=== PATIENT | male | born 1950 | race Caucasian/White ===

== ENCOUNTER 2019-03-09 14:06 | Inpatient (IN) | payer MEDICARE, MEDICAID ==
--- NOTE | 2019-03-09 14:20 | ED Physician Chart ---
ED Chief Complaint/HPI - Patient Information Date Seen:: 03/09/19 Time Seen:: 14:10 Chief Complaint:: Weight loss. History of Present Illness:: Brought in by ambulance from nursing facility because pt has been noticed to have weight loss. Pt feels comfortable without bodily pain. No N/V/D. Last BM this morning that was normal in color/consistency. No hematochezia or melena. No anorexia. No cough. No fever. Pt tends to be forgetful and is a poor history provider. Allergies:: Allergies Allergy/AdvReac Type Severity Reaction Status Date / Time No Known Allergies Allergy Verified 03/09/19 14:14 Vitals:: see Nurse Note. Historian:: Patient Family MD/PCP:: Dr. Oliveros. LMP:: N/A Review:: Nurse's Note Reviewed, Transfer documents Reviewed ED Review of Systems - Review of Systems General/Constitutional: No fever, No chills, Weight loss, No weakness, No edema , No loss of appetite Skin: No skin lesions, No rash, No bruising Head: No headache, No light-headedness Eyes: No loss of vision, No pain, No diplopia ENT: No earache, No nasal drainage, No sore throat Neck: No neck pain, No swelling, No thyromegaly, No stiffness Cardio Vascular: No chest pain, No palpitations, No edema Pulmonary: No SOB, No cough, No wheezing GI: No nausea, No vomiting, No diarrhea, No pain, No melena, No hematochezia, No constipation G/U: No dysuria, No frequency, No hematuria Musculoskeletal: No bone or joint pain Endocrine: No polyuria, No polydipsia Psychiatric: No prior psych history, No depression Hematopoietic: No bruising, No lymphadenopathy Allergic/Immuno: No urticaria, No angioedema Neurological: No focal symptoms, No weakness, No paresthesia, No headache, No confusion ED Past Medical History - Past Medical History Past Medical History: HTN, DM, Dyslipidemia, PUD/GERD, Thyroid disorder, Dementia Family History: Diabetes Melitus Social History: Non Smoker, No Alcohol, No Drug Use, , Care Facility Employment:: Retired. Surgical History: None Psychiatricy History: None Medication: Reviewed ED Physical Exam - Physical Examination General/Constitutional: Awake, Well-developed, well-nourished, Alert, No distress, Non-toxic appearing Other Gen/Cons comments:: Breathes comfortably, speaks clearly, and interacts appropriately. Head: Atraumatic Eyes: Lids, conjuctiva normal, PERRL, EOMI Skin: Nl inspection, No skin lesions Other Skin comments:: Mucous membrane is slightly dry. ENMT: External ears, nose nl, Nasal exam nl, Oropharynx nl Neck: Nontender, Full ROM w/o pain, No JVD, No nuchal rigidity, No mass Respiratory: Nl effort/Exclusion, Clear to Auscultation, No Wheeze/Rhonchi/Rales Cardio Vascular: RRR, No murmur, gallop, rubs GI: No tenderness/rebounding/guarding, No organomegaly, Normal BS's, Nondistended, No mass/bruits : No CVA tenderness Extremities: No tenderness or effusion, Full ROM, No edema Neuro/Psych: Alert/oriented (oriented x 3.), No focal deficits Misc: Normal back, No paraspinal tenderness ED Labs/Radiology/EKG Results - Lab Results Results: Laboratory Results - last 24 hr 03/09/19 03/09/19 03/09/19 14:30 14:40 14:40 WBC 8.7 RBC 5.10 Hgb 15.3 Hct 45.8 MCV 89.8 MCH 30.0 MCHC Differential 33.4 RDW 12.1 Plt Count 327 MPV 7.7 Neutrophils % 40.3 Lymphocytes % 48.9 Monocytes % 7.1 Eosinophils % 3.0 Basophils % 0.7 PT 10.0 INR 0.96 PTT (Actin FS) 28.2 Sodium Potassium Chloride Carbon Dioxide Anion Gap BUN Creatinine Est GFR ( Amer) Est GFR (Non-Af Amer) BUN/Creatinine Ratio Glucose POC Glucose Calcium Total Bilirubin AST ALT Alkaline Phosphatase Total Protein Albumin Globulin Albumin/Globulin Ratio Urine Source CLEAN C Urine Color YELLOW Urine Clarity CLEAR Urine pH 6.0 Ur Specific Severance <= 1.005 Urine Protein NEGATIVE Urine Glucose (UA) >=1000 H Urine Ketones NEGATIVE Urine Blood NEGATIVE Urine Nitrate NEGATIVE Urine Bilirubin NEGATIVE Urine Urobilinogen 0.2 Ur Leukocyte Esterase NEGATIVE Urine RBC NONE SEEN Urine WBC 0-2 Ur Epithelial Cells OCCASIONAL Urine Bacteria OCCASIONAL Serum Ketones 03/09/19 03/09/19 03/09/19 14:40 14:40 14:50 WBC RBC Hgb Hct MCV MCH MCHC Differential RDW Plt Count MPV Neutrophils % Lymphocytes % Monocytes % Eosinophils % Basophils % PT INR PTT (Actin FS) Sodium 132 L Potassium 4.3 Chloride 93 L Carbon Dioxide 28.0 Anion Gap 15.3 BUN 16 Creatinine 1.1 Est GFR ( Amer) > 60.0 Est GFR (Non-Af Amer) > 60.0 BUN/Creatinine Ratio 14.5 Glucose 602 H* POC Glucose 591 H* Calcium 9.6 Total Bilirubin 0.5 AST 7 L ALT 11 Alkaline Phosphatase 139 H Total Protein 6.7 Albumin 3.9 L Globulin 2.8 Albumin/Globulin Ratio 1.4 Urine Source Urine Color Urine Clarity Urine pH Ur Specific Severance Urine Protein Urine Glucose (UA) Urine Ketones Urine Blood Urine Nitrate Urine Bilirubin Urine Urobilinogen Ur Leukocyte Esterase Urine RBC Urine WBC Ur Epithelial Cells Urine Bacteria Serum Ketones NEGATIVE Pending lab result: TSH. ED Septic Shock - . Is Septic Shock (SBP<90, OR Lactate>4 mmol\L) present?: No ED Reassessment (Disposition) - Reassessment Reassessment:: 1525 Pt remains stable and appears to be comfortable. Lab results just became available and have been reviewed with pt. Management plan has been discussed. 1645 Case was discussed with Dr. Oliveros with pertinent info reviewed. Pt is to be admitted to [facility] under his care. Reassessment Condition:: Improved - Diagnosis Diagnosis:: Unexplained weight loss by hx. Uncontrolled diabetes mellitus. Dehydration. H/O HTN. H/O hypothyroidism. H/O dementia. - Patient Disposition Admitted to:: Med/Surg Admitting Medical Physician:: Yasmany Oliveros Time:: 16:45 Condition at Disposition:: Stable
[2019-03-09 14:50] LABS: % BASOPHILS 0.7 % (0.0-2.0); % LYMPHOCYTES 48.9 % (20.0-50.0); % MONOCYTES 7.1 % (2.0-10.0); % NEUTROPHILS 40.3 % (40.0-80.0); BASOPHILE ABSOLUTE 0.1 Th/cumm (0-0.2); EOSINOPHILE ABSOLUTE 0.3 Th/cmm (0.1-0.4); HEMATOCRIT 45.8 % (41.0-60); HEMOGLOBIN 15.3 gm/dL (12-16); LYMPHOCYTE ABSOLUTE 4.2 Th/cmm (1.5-3.0); MEAN CELL VOLUME 89.8 fl (80-99); MEAN CORPUSCULAR HGB CONC 33.4 pg (28.0-36.0); MEAN PLATELET VOLUME 7.7 fl; MONOCYTE ABSOLUTE 0.6 Th/cmm (0.3-1.0); NEUTROPHILE ABSOLUTE 3.5 Th/cmm (1.8-8.0); PLATELET COUNT 327 Th/cmm (150-400); RED CELL DISTRIBUTION WIDTH 12.1 % (11.5-20.0); WHITE BLOOD COUNT 8.7 Th/cmm (4.8-10.8)
[2019-03-09 14:54] LABS: URINE SOURCE CLEAN C
[2019-03-09 15:11] LABS: URINE BILIRUBIN NEGATIVE (NEGATIVE); URINE BLOOD NEGATIVE (NEGATIVE); URINE GLUCOSE (UA) >=1000 mg/dL (NEGATIVE); URINE KETONE NEGATIVE (NEGATIVE); URINE LEUKOCYTE ESTERASE NEGATIVE (NEGATIVE); URINE MICROSCOPIC INDICATED? YES; URINE NITRATE NEGATIVE (NEGATIVE); URINE PROTEIN NEGATIVE (NEGATIVE); URINE UROBILINOGEN 0.2 E.U./dL (0.2 - 1.0)
[2019-03-09 15:12] LABS: INR 0.96 (0.5-1.4)
[2019-03-09 15:14] LABS: URINE CLARITY CLEAR (CLEAR); URINE COLOR YELLOW
[2019-03-09 15:15] LABS: ALB/GLOB RATIO 1.4 (1.0-1.8); ALBUMIN 3.9 gm/dL (4.2-5.5); ALKALINE PHOSPHATASE 139 U/L (34-104); ANION GAP 15.3 (7.0-16.0); BILIRUBIN,TOTAL 0.5 mg/dL (0.3-1.0); BUN - UREA NITROGEN 16 mg/dL (7-25); CALCIUM SERUM 9.6 mg/dL (8.6-10.3); CHLORIDE 93 mEq/L (98-107); CREATININE - SERUM 1.1 mg/dL (0.7-1.3); GFR AFRICAN-AMERICAN > 60.0 ml/min (>90); GFR NON AFRICAN-AMERICAN > 60.0 ml/min; POTASSIUM SERUM 4.3 mEq/L (3.5-5.1); SGOT 7 U/L (13-39); SGPT/ALT 11 U/L (7-52); SODIUM SERUM 132 mEq/L (136-145); TOTAL PROTEIN,SERUM 6.7 gm/dL (6.0-8.3)
[2019-03-09 15:20] LABS: URINE BACTERIA OCCASIONAL /hpf (NONE SEEN); URINE EPITHELIAL CELLS OCCASIONAL /lpf (FEW); URINE RBC NONE SEEN /hpf (0-5); URINE WBC 0-2 /hpf (0-5)
[2019-03-09 15:22] LABS: GLUCOSE 602 mg/dL (70-105)
[2019-03-09] MEDS ORDERED: INSULIN HUMAN REGULAR 100 UNITS/ML UNIT SUBQ ONE (15:24)
[2019-03-09] MEDS ORDERED: INSULIN HUMAN REGULAR 100 UNITS/ML UNIT ONE (15:29)
[2019-03-09] MEDS ORDERED: Sodium Chloride 0.9% 1,000 ML IV SCH (15:45)
[2019-03-09] MEDS ORDERED: GLUCAGON HCl 1 MG KIT IM PRN (17:13)
[2019-03-09] MEDS ORDERED: Dextrose 50% 50 mL Abboject IVP PRN (17:13)
[2019-03-09] MEDS ORDERED: cefTRIAXone 1 GM in Sodium Chloride 0.9% 50 ML IV ONE (17:15)
[2019-03-09 20:22] VITALS: BP 150/87
[2019-03-09] MEDS: INSULIN LISPRO SLIDING SCALE 100 UNITS/ML UNIT SUBQ SCH (20:43)
[2019-03-09] MEDS: Sodium Chloride 0.45% 1,000 ML IV SCH (20:46)
[2019-03-10] MEDS: INSULIN LISPRO SLIDING SCALE 100 UNITS/ML UNIT SUBQ SCH ×5 (00:27→21:44)
[2019-03-10] MEDS: Sodium Chloride 0.45% 1,000 ML IV SCH (04:24)
[2019-03-10 05:00] LABS: HEMATOCRIT 43.5 % (41.0-60); HEMOGLOBIN 14.2 gm/dL (12-16); MEAN CELL VOLUME 90.2 fl (80-99); MEAN CORPUSCULAR HEMOGLOBIN 29.4 pg (27.0-31.0); MEAN CORPUSCULAR HGB CONC 32.7 pg (28.0-36.0); MEAN PLATELET VOLUME 7.5 fl; PLATELET COUNT 339 Th/cmm (150-400); RED BLOOD COUNT 4.83 Mil/cmm (3.80-5.80); WHITE BLOOD COUNT 9.9 Th/cmm (4.8-10.8)
[2019-03-10 05:56] LABS: ALB/GLOB RATIO 1.4 (1.0-1.8); ALBUMIN 3.4 gm/dL (4.2-5.5); ALKALINE PHOSPHATASE 98 U/L (34-104); BILIRUBIN,TOTAL 0.3 mg/dL (0.3-1.0); BUN - UREA NITROGEN 16 mg/dL (7-25); CALCIUM SERUM 8.7 mg/dL (8.6-10.3); CARBON DIOXIDE 26.4 mEq/L (21.0-31.0); CHLORIDE 99 mEq/L (98-107); CHOLESTEROL 168 mg/dL (<200); CREATININE - SERUM 0.9 mg/dL (0.7-1.3); GFR AFRICAN-AMERICAN > 60.0 ml/min (>90); GFR NON AFRICAN-AMERICAN > 60.0 ml/min; HDL -HIGH DENSITY LIPOPROTEIN 46 mg/dL (23-92); POTASSIUM SERUM 3.4 mEq/L (3.5-5.1); SGOT 7 U/L (13-39); SGPT/ALT 9 U/L (7-52); SODIUM SERUM 135 mEq/L (136-145); TOTAL PROTEIN,SERUM 5.8 gm/dL (6.0-8.3); TRIGLYCERIDES 137 mg/dL (<150)
[2019-03-10 05:58] LABS: GLUCOSE 297 mg/dL (70-105)
[2019-03-10 08:13] LABS: BAND NEUTROPHILE 0 % (0-10); EOSINOPHIL 4 % (0-5); LYMPHOCYTE 48 % (20-50); MONOCYTE 8 % (2-10); NEUTROPHILS 40 % (40-80)
[2019-03-10 08:14] LABS: BASOPHIL 0 % (0-3)
[2019-03-10] MEDS ORDERED: Potassium Chloride 20 mEq ER Tab PO ONE (10:39)
--- NOTE | 2019-03-10 15:08 | History & Physical ---
ADMIT DATE: 03/10/[address] Oliveros. CHIEF COMPLAINT: Weight loss. HISTORY OF PRESENT ILLNESS: This is a 68-year-old male who is a [facility] resident, admitted to the Med/Surg unit with 1-day history of weight loss. PAST MEDICAL HISTORY: Hypertension, diabetes, dyslipidemia, GERD, hypothyroidism and dementia. FAMILY HISTORY: Noncontributory. SOCIAL HISTORY: The patient is a [facility] resident. SURGICAL HISTORY: None. MEDICATIONS: See medication list. REVIEW OF SYSTEMS: GENERAL: Denies any fever or chills. CARDIOVASCULAR: Denies chest pain. RESPIRATORY: Denies shortness of breath. GENITOURINARY: Denies increased frequency. NEUROLOGIC: No headaches, seizures, or syncope. All systems are reviewed and are negative. PHYSICAL EXAMINATION: GENERAL: The patient is well developed, well nourished, no apparent distress. VITAL SIGNS: Temperature 97.7, heart rate 69, blood pressure 136/68, respirations 16, O2 of 96. HEENT: Head normocephalic, atraumatic. NECK: Supple. No mass. LUNGS: Clear bilaterally.. HEART: Regular rate and rhythm. ABDOMEN: Soft, nontender. LABORATORY DATA: WBC 9.9, H and H 14.2 and 43.5, platelet 339. Sodium 135, potassium 3.4, chloride 99, BUN 16, creatinine 0.9. ASSESSMENT: Uncontrolled diabetes, weight loss. Acute dehydration. PLAN: The patient to be admitted to the Med/Surg unit. Keep the patient on IV fluids for hydration. We will get dietitian on board. We will do Accu-Chek a.c. and bedtime. We will continue to monitor the patient. JOB# [id number]
[2019-03-10] MEDS: Insulin Glargine 100 units/ml 10ml Vial SUBQ SCH (21:45)
[2019-03-11] MEDS: INSULIN LISPRO SLIDING SCALE 100 UNITS/ML UNIT SUBQ SCH ×4 (06:45→20:56)
[2019-03-11 07:17] LABS: HEMATOCRIT 43.3 % (41.0-60); HEMOGLOBIN 14.2 gm/dL (12-16); MEAN CELL VOLUME 89.2 fl (80-99); MEAN CORPUSCULAR HEMOGLOBIN 29.3 pg (27.0-31.0); MEAN CORPUSCULAR HGB CONC 32.8 pg (28.0-36.0); MEAN PLATELET VOLUME 7.9 fl; PLATELET COUNT 319 Th/cmm (150-400); RED BLOOD COUNT 4.85 Mil/cmm (3.80-5.80); RED CELL DISTRIBUTION WIDTH 12.2 % (11.5-20.0); WHITE BLOOD COUNT 8.3 Th/cmm (4.8-10.8)
[2019-03-11 07:31] LABS: ANION GAP 11.4 (7.0-16.0); BUN - UREA NITROGEN 18 mg/dL (7-25); CALCIUM SERUM 8.9 mg/dL (8.6-10.3); CARBON DIOXIDE 26.2 mEq/L (21.0-31.0); CHLORIDE 103 mEq/L (98-107); CREATININE - SERUM 0.8 mg/dL (0.7-1.3); GFR AFRICAN-AMERICAN > 60.0 ml/min (>90); GFR NON AFRICAN-AMERICAN > 60.0 ml/min; GLUCOSE 247 mg/dL (70-105); POTASSIUM SERUM 3.6 mEq/L (3.5-5.1); SODIUM SERUM 137 mEq/L (136-145)
[2019-03-11 09:00] LABS: BAND NEUTROPHILE 0 % (0-10); BASOPHIL 0 % (0-3); EOSINOPHIL 4 % (0-5); LYMPHOCYTE 50 % (20-50); METAMYELOCYTE 0 % (0-0); MONOCYTE 9 % (2-10); NEUTROPHILS 37 % (40-80)
[2019-03-11] MEDS: Pantoprazole 40 mg EC Tab PO SCH (09:58)
[2019-03-11] MEDS: Multivitamin w/ Minerals Tab PO SCH (09:59)
[2019-03-11] MEDS: Sodium Chloride 0.45% 1,000 ML IV SCH ×2 (09:59→23:16)
--- NOTE | 2019-03-11 19:57 | Internal Medicine Prog Note ---
Internal Medicine Subjective - Subjective Service Date: 03/11/19 Patient seen and examined:: with staff Patient is:: awake, verbal, confused Patient Complaints of:: weight loss Per staff patient has:: no adverse event, no episodes of fall, other ( Dehydration.) Internal Medicine Objective - Results Result Diagrams: 03/11/19 05:50 03/11/19 05:50 Recent Labs: Laboratory Last Values WBC 8.3 Th/cmm (4.8-10.8) 03/11/19 05:50 RBC 4.85 Mil/cmm (3.80-5.80) 03/11/19 05:50 Hgb 14.2 gm/dL (12-16) 03/11/19 05:50 Hct 43.3 % (41.0-60) 03/11/19 05:50 MCV 89.2 fl (80-99) 03/11/19 05:50 MCH 29.3 pg (27.0-31.0) 03/11/19 05:50 MCHC Differential 32.8 pg (28.0-36.0) 03/11/19 05:50 RDW 12.2 % (11.5-20.0) 03/11/19 05:50 Plt Count 319 Th/cmm (150-400) 03/11/19 05:50 MPV 7.9 fl 03/11/19 05:50 Add Manual Diff YES 03/11/19 05:50 Neutrophils % 40.3 % (40.0-80.0) 03/09/19 14:40 Band Neutrophils % 0 % (0-10) 03/11/19 05:50 Lymphocytes % 48.9 % (20.0-50.0) 03/09/19 14:40 Monocytes % 7.1 % (2.0-10.0) 03/09/19 14:40 Eosinophils % 3.0 % (0.0-5.0) 03/09/19 14:40 Basophils % 0.7 % (0.0-2.0) 03/09/19 14:40 Neutrophils (Manual) 37 % (40-80) L 03/11/19 05:50 Lymphocytes 50 % (20-50) 03/11/19 05:50 Monocytes 9 % (2-10) 03/11/19 05:50 Eosinophils 4 % (0-5) 03/11/19 05:50 Basophils 0 % (0-3) 03/11/19 05:50 Metamyelocytes 0 % (0-0) 03/11/19 05:50 PT 10.0 SECONDS (9.5-11.5) 03/09/19 14:40 INR 0.96 (0.5-1.4) 03/09/19 14:40 PTT (Actin FS) 28.2 SECONDS (26.0-38.0) 03/09/19 14:40 Sodium 137 mEq/L (136-145) 03/11/19 05:50 Potassium 3.6 mEq/L (3.5-5.1) 03/11/19 05:50 Chloride 103 mEq/L (98-107) 03/11/19 05:50 Carbon Dioxide 26.2 mEq/L (21.0-31.0) 03/11/19 05:50 Anion Gap 11.4 (7.0-16.0) 03/11/19 05:50 BUN 18 mg/dL (7-25) 03/11/19 05:50 Creatinine 0.8 mg/dL (0.7-1.3) 03/11/19 05:50 Est GFR ( Amer) > 60.0 ml/min (>90) 03/11/19 05:50 Est GFR (Non-Af Amer) > 60.0 ml/min 03/11/19 05:50 BUN/Creatinine Ratio 22.5 03/11/19 05:50 Glucose 247 mg/dL (70-105) H 03/11/19 05:50 POC Glucose 299 MG/DL (70 - 105) H 03/11/19 16:01 Calcium 8.9 mg/dL (8.6-10.3) 03/11/19 05:50 Total Bilirubin 0.3 mg/dL (0.3-1.0) 03/10/19 04:50 AST 7 U/L (13-39) L 03/10/19 04:50 ALT 9 U/L (7-52) 03/10/19 04:50 Alkaline Phosphatase 98 U/L (34-104) 03/10/19 04:50 Total Protein 5.8 gm/dL (6.0-8.3) L 03/10/19 04:50 Albumin 3.4 gm/dL (4.2-5.5) L 03/10/19 04:50 Globulin 2.4 gm/dL 03/10/19 04:50 Albumin/Globulin Ratio 1.4 (1.0-1.8) 03/10/19 04:50 Triglycerides 137 mg/dL (<150) 03/10/19 04:50 Cholesterol 168 mg/dL (<200) 03/10/19 04:50 LDL Cholesterol Direct 109 mg/dL (75-193) 03/10/19 04:50 HDL Cholesterol 46 mg/dL (23-92) 03/10/19 04:50 TSH 5.12 uIU/ml (0.34-5.60) 03/10/19 04:50 Urine Source CLEAN C 03/09/19 14:30 Urine Color YELLOW 03/09/19 14:30 Urine Clarity CLEAR (CLEAR) 03/09/19 14:30 Urine pH 6.0 (4.6 - 8.0) 03/09/19 14:30 Ur Specific [place] <= 1.005 (1.005-1.030) 03/09/19 14:30 Urine Protein NEGATIVE mg/dL (NEGATIVE) 03/09/19 14:30 Urine Glucose (UA) >=1000 mg/dL (NEGATIVE) H 03/09/19 14:30 Urine Ketones NEGATIVE mg/dL (NEGATIVE) 03/09/19 14:30 Urine Blood NEGATIVE (NEGATIVE) 03/09/19 14:30 Urine Nitrate NEGATIVE (NEGATIVE) 03/09/19 14:30 Urine Bilirubin NEGATIVE (NEGATIVE) 03/09/19 14:30 Urine Urobilinogen 0.2 E.U./dL (0.2 - 1.0) 03/09/19 14:30 Ur Leukocyte Esterase NEGATIVE (NEGATIVE) 03/09/19 14:30 Urine RBC NONE SEEN /hpf (0-5) 03/09/19 14:30 Urine WBC 0-2 /hpf (0-5) 03/09/19 14:30 Ur Epithelial Cells OCCASIONAL /lpf (FEW) 03/09/19 14:30 Urine Bacteria OCCASIONAL /hpf (NONE SEEN) 03/09/19 14:30 Serum Ketones NEGATIVE (NEGATIVE) 03/09/19 14:50 - Physical Exam Vitals and I&O: Vital Signs Temp 97.8 F 03/11/19 16:00 Pulse 61 03/11/19 16:00 Resp 18 03/11/19 16:00 BP 142/68 03/11/19 16:00 Pulse Ox 98 03/11/19 16:00 Intake & Output 03/11/19 03/11/19 03/12/19 06:59 18:59 06:59 Intake Total 350 160 Output Total 241 Balance 350 -81 Weight (lbs) 72.575 kg 72.575 kg Intake: Oral 350 160 Output: Urine 240 Stool 1 Other: # Voids 3 4 Weight Source Bedscale Bedscale Active Medications: Current Medications Dextrose (D50w) 50 ml IVP PRN PRN PRN Reason: Blood Glucose less than 70 Stop: 05/08/19 17:12 Dextrose (Glutose 40%) 18.75 gm PO PRN PRN PRN Reason: Blood Glucose less than 70 Stop: 05/08/19 17:12 Docusate Sodium (Colace) 100 mg PO DAILY [facility] Stop: 05/10/19 08:59 Last Admin: 03/11/19 09:59 Dose: 100 mg Donepezil HCl (Aricept) 10 mg PO [facility] Stop: 05/09/19 20:59 Last Admin: 03/10/19 21:44 Dose: 10 mg Glipizide (Glucotrol) 10 mg PO BID [facility] Stop: 05/09/19 16:59 Last Admin: 03/11/19 16:39 Dose: 10 mg Glucagon (Glucagen) 1 mg IM PRN PRN PRN Reason: Blood Glucose less than 70 Stop: 05/08/19 17:12 Sodium Chloride (Nacl 0.45%) 1,000 mls @ 125 mls/hr IV .Q8H [facility] Stop: 05/08/19 17:14 Last Admin: 03/11/19 09:59 Dose: 125 mls/hr Insulin Glargine (Lantus Insulin) 20 units SUBQ HS [facility] Stop: 05/09/19 20:59 Last Admin: 03/10/19 21:45 Dose: 20 unit Insulin Human Lispro (Humalog Insulin Sliding Scale) 0 units SUBQ [facility]; Protocol Stop: 05/09/19 16:29 Last Admin: 03/11/19 16:41 Dose: 6 units Pantoprazole Sodium (Protonix) 40 mg PO DAILY [facility] Stop: 05/10/19 08:59 Last Admin: 03/11/19 09:58 Dose: 40 mg Physical Exam: 68 y/o male patient has hx of Dementia, he has been dehydrated and weight loss. General: weak, demented HEENT: NC/AT Neck: Supple Lungs: CTAB Cardiovascular: RRR, Normal S1 Abdomen: soft, non-tender Extremities: clear Neurological: no change Internal Medicine Assmt/Plan - Assessment Assessment: Weight loss. Gerd. Hypothyroidism. HTN. DM. Dyslipidemia. Dementia. Acute dehydration. - Plan Plan: Continuation of care. Monitor vitals, low sodium diabetic diet and labs. Continue present meds as directed. Monitor mental status progression. Monitor behavioral health status. Supportive care. Fall precaution, frequent nursing rounds, and as needed restraints to prevent fall. Continue present care management. Nutritional Asmnt/Malnutr-PDOC - Dietary Evaluation Malnutrition Findings (Please click <Entered> for more info): see orders.
[2019-03-11] MEDS: Insulin Glargine 100 units/ml 10ml Vial SUBQ SCH (20:58)
--- NOTE | 2019-03-11 22:26 | Consultation ---
DATE OF CONSULTATION: 03/11/2019 INFECTIOUS DISEASE CONSULTATION REFERRING PHYSICIAN: Wing Oliveros M.D. REASON FOR CONSULTATION: Weight loss. HISTORY OF PRESENT ILLNESS: The patient is a 68-year-old male with past medical history of diabetes mellitus type 2, dementia, hypertension, hyperlipidemia, GERD, hypothyroidism, brought in from senior living for history of weight loss. The patient denies any fever. The patient denies any hematuria or hemoptysis. The patient denies any pain. 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 PAST MEDICAL HISTORY: Includes hypertension, diabetes mellitus type 2, dyslipidemia, GERD, hypothyroidism and dementia. FAMILY HISTORY: Noncontributory. SOCIAL HISTORY: The patient lives in a senior living. No history of smoking, alcohol or drug use. PAST SURGICAL HISTORY: None. MEDICATIONS: Per medication reconciliation sheet. Antibiotic-cat, none. REVIEW OF SYSTEMS: GENERAL: The patient has no fever, no chills. No generalized weakness, but there is a weight loss, but further details are not available. HEENT: The patient has no diplopia, no photophobia, no sore throat. RESPIRATORY: No cough, no shortness of breath, and no hemoptysis. CARDIOVASCULAR: No chest pain or palpitation. No leg swelling. GASTROINTESTINAL: The patient has no nausea, no vomiting, no diarrhea, no constipation, no hematochezia, no hematemesis, and no dysphagia. GENITOURINARY: No dysuria, no hematuria. CENTRAL NERVOUS SYSTEM: No headache, no dizziness, no focal weakness. PHYSICAL EXAMINATION: VITAL SIGNS: Shows temperature. GENERAL: The patient is well developed, well nourished, not in acute distress. His weight is 72.6 kilograms and BMI of 24. HEENT: Head is normocephalic, atraumatic. Oral cavity moist, pink tongue. EYES: No pallor, no icterus. PERRLA, EOMI. NECK: Supple, no JVD, no bruit. Trachea midline. CHEST: Bilateral breath sounds. No crackles or wheezing. HEART: S1, S2 within normal limits, regular rhythm. No murmur, no gallop. ABDOMEN: Soft, nontender, nondistended. Bowel sounds present. The patient has an old surgical trauma scar of the trauma in left upper quadrant. EXTREMITIES: No cyanosis, no clubbing, no edema. NEUROLOGICAL: Alert, awake, oriented x 3. No focal deficit. LABORATORY DATA: Lab cat, current lab shows WBC count 8300, hemoglobin 14.2, hematocrit 43.3, platelets are 219,000, neutrophil is 37%, lymphocyte is 50%. Sodium 137, potassium 3.6, chloride 103, bicarbonate is 26, BUN is 18, creatinine is 0.8, glucose is 247. Urinalysis negative. Nitrite, negative. Leukoesterase, serum ketone is negative. MRSA screen is negative. IMPRESSION: 1. Weight loss as the history. 2. Diabetes mellitus type 2. 3. Hypertension. 4. Hyperlipidemia. 5. Hypothyroidism. 6. Dementia. RECOMMENDATIONS AND PLAN: We will do chest x-ray, check TB Gold QuantiFERON. Check HIV screen. Thank you, Dr. Oliveros for involving me in taking care of this patient. JOB# [id number]
[2019-03-12] MEDS: INSULIN LISPRO SLIDING SCALE 100 UNITS/ML UNIT SUBQ SCH ×4 (06:42→20:56)
[2019-03-12 07:12] LABS: % BASOPHILS 0.6 % (0.0-2.0); % EOSINOPHILS 4.4 % (0.0-5.0); BASOPHILE ABSOLUTE 0.1 Th/cumm (0-0.2); EOSINOPHILE ABSOLUTE 0.4 Th/cmm (0.1-0.4); HEMATOCRIT 46.4 % (41.0-60); LYMPHOCYTE ABSOLUTE 3.9 Th/cmm (1.5-3.0); MEAN CELL VOLUME 90.3 fl (80-99); MEAN CORPUSCULAR HEMOGLOBIN 29.3 pg (27.0-31.0); MEAN CORPUSCULAR HGB CONC 32.5 pg (28.0-36.0); MONOCYTE ABSOLUTE 0.6 Th/cmm (0.3-1.0); NEUTROPHILE ABSOLUTE 3.7 Th/cmm (1.8-8.0); PLATELET COUNT 317 Th/cmm (150-400); RED BLOOD COUNT 5.13 Mil/cmm (3.80-5.80); RED CELL DISTRIBUTION WIDTH 12.3 % (11.5-20.0); WHITE BLOOD COUNT 8.7 Th/cmm (4.8-10.8)
[2019-03-12 07:13] LABS: ANION GAP 13.3 (7.0-16.0); BUN - UREA NITROGEN 30 mg/dL (7-25); CALCIUM SERUM 9.1 mg/dL (8.6-10.3); CARBON DIOXIDE 24.6 mEq/L (21.0-31.0); CHLORIDE 100 mEq/L (98-107); CREATININE - SERUM 0.8 mg/dL (0.7-1.3); GFR AFRICAN-AMERICAN > 60.0 ml/min (>90); GFR NON AFRICAN-AMERICAN > 60.0 ml/min; GLUCOSE 360 mg/dL (70-105); POTASSIUM SERUM 3.9 mEq/L (3.5-5.1); SODIUM SERUM 134 mEq/L (136-145)
[2019-03-12] MEDS: Multivitamin w/ Minerals Tab PO SCH (08:39)
--- NOTE | 2019-03-12 08:43 | Diagnostic Imaging Report ---
CHEST X-RAY: AP view INDICATION: Pneumonia COMPARISON: None FINDINGS: There is mild elevation of the right hemidiaphragm. There is 7 mm faint density projecting along the right third rib. There is no focal consolidation or pleural effusions The heart is normal in size. Degenerative changes of the spine are noted. IMPRESSION: No focal consolidation identified. 7 mm density projecting along the right third rib. This is nonspecific and may represent a calcification and granuloma however, other pulmonary nodules cannot be excluded. As no prior x-rays available for comparison, a follow-up CT of the chest is suggested for further assessment.
[2019-03-12] MEDS: Pantoprazole 40 mg EC Tab PO SCH (08:49)
[2019-03-12] MEDS: Sodium Chloride 0.45% 1,000 ML IV SCH (17:16)
[2019-03-12] MEDS ORDERED: Insulin Glargine 100 units/ml 10ml Vial SUBQ SCH (18:00)
[2019-03-13] MEDS: INSULIN LISPRO SLIDING SCALE 100 UNITS/ML UNIT SUBQ SCH ×3 (06:52→17:34)
[2019-03-13] MEDS: Sodium Chloride 0.45% 1,000 ML IV SCH ×3 (07:39→15:52)
[2019-03-13] MEDS: Multivitamin w/ Minerals Tab PO SCH (08:16)
[2019-03-13] MEDS: Pantoprazole 40 mg EC Tab PO SCH (08:16)
--- NOTE | 2019-03-13 14:28 | Internal Medicine Prog Note ---
Internal Medicine Subjective - Subjective Service Date: 03/13/19 Patient seen and examined:: with staff Patient is:: awake, verbal, confused Patient Complaints of:: weight loss Per staff patient has:: no adverse event, no episodes of fall, other ( Dehydration.) Internal Medicine Objective - Results Result Diagrams: 03/12/19 06:20 03/12/19 06:20 Recent Labs: Laboratory Last Values WBC 8.7 Th/cmm (4.8-10.8) 03/12/19 06:20 RBC 5.13 Mil/cmm (3.80-5.80) 03/12/19 06:20 Hgb 15.0 gm/dL (12-16) 03/12/19 06:20 Hct 46.4 % (41.0-60) 03/12/19 06:20 MCV 90.3 fl (80-99) 03/12/19 06:20 MCH 29.3 pg (27.0-31.0) 03/12/19 06:20 MCHC Differential 32.5 pg (28.0-36.0) 03/12/19 06:20 RDW 12.3 % (11.5-20.0) 03/12/19 06:20 Plt Count 317 Th/cmm (150-400) 03/12/19 06:20 MPV 8.0 fl 03/12/19 06:20 Add Manual Diff YES 03/11/19 05:50 Neutrophils % 42.0 % (40.0-80.0) 03/12/19 06:20 Band Neutrophils % 0 % (0-10) 03/11/19 05:50 Lymphocytes % 46.0 % (20.0-50.0) 03/12/19 06:20 Monocytes % 7.0 % (2.0-10.0) 03/12/19 06:20 Eosinophils % 4.4 % (0.0-5.0) 03/12/19 06:20 Basophils % 0.6 % (0.0-2.0) 03/12/19 06:20 Neutrophils (Manual) 37 % (40-80) L 03/11/19 05:50 Lymphocytes 50 % (20-50) 03/11/19 05:50 Monocytes 9 % (2-10) 03/11/19 05:50 Eosinophils 4 % (0-5) 03/11/19 05:50 Basophils 0 % (0-3) 03/11/19 05:50 Metamyelocytes 0 % (0-0) 03/11/19 05:50 PT 10.0 SECONDS (9.5-11.5) 03/09/19 14:40 INR 0.96 (0.5-1.4) 03/09/19 14:40 PTT (Actin FS) 28.2 SECONDS (26.0-38.0) 03/09/19 14:40 Sodium 134 mEq/L (136-145) L 03/12/19 06:20 Potassium 3.9 mEq/L (3.5-5.1) 03/12/19 06:20 Chloride 100 mEq/L (98-107) 03/12/19 06:20 Carbon Dioxide 24.6 mEq/L (21.0-31.0) 03/12/19 06:20 Anion Gap 13.3 (7.0-16.0) 03/12/19 06:20 BUN 30 mg/dL (7-25) H 03/12/19 06:20 Creatinine 0.8 mg/dL (0.7-1.3) 03/12/19 06:20 Est GFR ( Amer) > 60.0 ml/min (>90) 03/12/19 06:20 Est GFR (Non-Af Amer) > 60.0 ml/min 03/12/19 06:20 BUN/Creatinine Ratio 37.5 03/12/19 06:20 Glucose 360 mg/dL (70-105) H 03/12/19 06:20 POC Glucose 215 MG/DL (70 - 105) H 03/13/19 12:02 Calcium 9.1 mg/dL (8.6-10.3) 03/12/19 06:20 Total Bilirubin 0.3 mg/dL (0.3-1.0) 03/10/19 04:50 AST 7 U/L (13-39) L 03/10/19 04:50 ALT 9 U/L (7-52) 03/10/19 04:50 Alkaline Phosphatase 98 U/L (34-104) 03/10/19 04:50 Total Protein 5.8 gm/dL (6.0-8.3) L 03/10/19 04:50 Albumin 3.4 gm/dL (4.2-5.5) L 03/10/19 04:50 Globulin 2.4 gm/dL 03/10/19 04:50 Albumin/Globulin Ratio 1.4 (1.0-1.8) 03/10/19 04:50 Triglycerides 137 mg/dL (<150) 03/10/19 04:50 Cholesterol 168 mg/dL (<200) 03/10/19 04:50 LDL Cholesterol Direct 109 mg/dL (75-193) 03/10/19 04:50 HDL Cholesterol 46 mg/dL (23-92) 03/10/19 04:50 TSH 5.12 uIU/ml (0.34-5.60) 03/10/19 04:50 Urine Source CLEAN C 03/09/19 14:30 Urine Color YELLOW 03/09/19 14:30 Urine Clarity CLEAR (CLEAR) 03/09/19 14:30 Urine pH 6.0 (4.6 - 8.0) 03/09/19 14:30 Ur Specific [place] <= 1.005 (1.005-1.030) 03/09/19 14:30 Urine Protein NEGATIVE mg/dL (NEGATIVE) 03/09/19 14:30 Urine Glucose (UA) >=1000 mg/dL (NEGATIVE) H 03/09/19 14:30 Urine Ketones NEGATIVE mg/dL (NEGATIVE) 03/09/19 14:30 Urine Blood NEGATIVE (NEGATIVE) 03/09/19 14:30 Urine Nitrate NEGATIVE (NEGATIVE) 03/09/19 14:30 Urine Bilirubin NEGATIVE (NEGATIVE) 03/09/19 14:30 Urine Urobilinogen 0.2 E.U./dL (0.2 - 1.0) 03/09/19 14:30 Ur Leukocyte Esterase NEGATIVE (NEGATIVE) 03/09/19 14:30 Urine RBC NONE SEEN /hpf (0-5) 03/09/19 14:30 Urine WBC 0-2 /hpf (0-5) 03/09/19 14:30 Ur Epithelial Cells OCCASIONAL /lpf (FEW) 03/09/19 14:30 Urine Bacteria OCCASIONAL /hpf (NONE SEEN) 03/09/19 14:30 Serum Ketones NEGATIVE (NEGATIVE) 03/09/19 14:50 HIV 1&2 Antibody Screen Non Reactive (Non Reactive) 03/12/19 06:20 - Physical Exam Vitals and I&O: Vital Signs Temp 98.3 F 03/13/19 12:00 Pulse 57 03/13/19 12:00 Resp 19 03/13/19 12:00 BP 143/74 03/13/19 12:00 Pulse Ox 95 03/13/19 12:00 Intake & Output 03/12/19 03/13/19 03/13/19 18:59 06:59 18:59 Intake Total 1560 1300 4.167 Output Total 800 Balance 760 1300 4.167 Weight (lbs) 72.575 kg 72.575 kg Intake: Intake, IV Amount 1000 1000 4.167 Sodium Chloride 0.45% 1, 1000 1000 4.167 000 ml @ 125 mls/hr IV . Q8H [facility] Rx#:[id number] Oral 560 300 Output: Urine 800 Other: # Voids 4 # Bowel Movements 0 Weight Source Estimated Bedscale Active Medications: Current Medications Dextrose (D50w) 50 ml IVP PRN PRN PRN Reason: Blood Glucose less than 70 Stop: 05/08/19 17:12 Dextrose (Glutose 40%) 18.75 gm PO PRN PRN PRN Reason: Blood Glucose less than 70 Stop: 05/08/19 17:12 Docusate Sodium (Colace) 100 mg PO DAILY [facility] Stop: 05/10/19 08:59 Last Admin: 03/13/19 08:16 Dose: 100 mg Donepezil HCl (Aricept) 10 mg PO HS [facility] Stop: 05/09/19 20:59 Last Admin: 03/12/19 20:53 Dose: 10 mg Glipizide (Glucotrol) 10 mg PO BID [facility] Stop: 05/09/19 16:59 Last Admin: 03/13/19 08:16 Dose: 10 mg Glucagon (Glucagen) 1 mg IM PRN PRN PRN Reason: Blood Glucose less than 70 Stop: 05/08/19 17:12 Sodium Chloride (Nacl 0.45%) 1,000 mls @ 125 mls/hr IV .Q8H [facility] Stop: 05/08/19 17:14 Last Admin: 03/13/19 07:41 Dose: 125 mls/hr Insulin Glargine (Lantus Insulin) 20 units SUBQ Q12HR [facility] Stop: 05/11/19 17:59 Last Admin: 03/12/19 17:09 Dose: 20 100 Insulin Human Lispro (Humalog Insulin Sliding Scale) 0 units SUBQ [facility]; Protocol Stop: 05/09/19 16:29 Last Admin: 03/13/19 12:35 Dose: 4 units Pantoprazole Sodium (Protonix) 40 mg PO DAILY [facility] Stop: 05/10/19 08:59 Last Admin: 03/13/19 08:16 Dose: 40 mg Physical Exam: 68 y/o male patient has cough and is dis-oriented. General: weak, demented HEENT: NC/AT Neck: Supple Lungs: congested, other (Pneumonia.) Cardiovascular: RRR, Normal S1 Abdomen: soft, non-tender Extremities: clear Neurological: no change Internal Medicine Assmt/Plan - Assessment Assessment: Pneumonia. Weight loss. Gerd. Hypothyroidism. HTN. DM. Dyslipidemia. Dementia. Acute dehydration. - Plan Plan: Continuation of care. Monitor vitals, low sodium diabetic diet and labs. Continue present meds as directed. Monitor mental status progression. Monitor behavioral health status. Supportive care. Fall precaution, frequent nursing rounds, and as needed restraints to prevent fall. Continue present care management. Nutritional Asmnt/[facility]r-PDOC - Dietary Evaluation Malnutrition Findings (Please click <Entered> for more info): see orders.
== END 2019-03-13 20:10 | DRG 637 ==
LOC: ER 14:06 → MSI 16:47 → TELE 17:26 → MSI 18:31
PROVIDERS: ADMIT Internal Medicine; ATTEND Internal Medicine
DX: E11.00 Type 2 diabetes mellitus with hyperosmolarity without nonketotic hyperglycemic-hyperosmolar coma (NKHHC) (principal); J18.9 Pneumonia, unspecified organism; E87.1 Hypo-osmolality and hyponatremia; R63.4 Abnormal weight loss; E86.0 Dehydration; I10 Essential (primary) hypertension; E78.5 Hyperlipidemia, unspecified; K21.9 Gastro-esophageal reflux disease without esophagitis; F03.90 Unspecified dementia, unspecified severity, without behavioral disturbance, psychotic disturbance, mood disturbance, and anxiety; E03.9 Hypothyroidism, unspecified
CPT/HCPCS: 36415-UA; 71045-TC; 80048-TC; 80053-TC; 80061-TC; 81001-TC; 82010-TC; 82948-90; 83036-90; 84443-TC; 85007-TC; 85025-TC; 85610-TC; 86480-90; 86703-TC; 87389-90; J0696; J1815; J7030; Z7610